=== PATIENT | female | born 2000 | race Caucasian/White ===

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

== ENCOUNTER 2023-03-11 09:30 | Inpatient (IN) ==
[2023-03-14] MEDS ORDERED: LIDOCAINE 1% LOCAL 20 ML VIAL INFIL PRN (13:20)
[2023-03-14] MEDS ORDERED: OXYTOCIN 30 UNITS/500 ML BAG IV PRN ×2 (13:20)
--- NOTE | 2023-03-14 13:53 | History & Physical Report ---
"Date of Service March 14, 2023 Assessment & Plan (1) Encounter for induction of labor: Plan pitocin arom when indicated monitor tracing, category 1 Admission and Anticipated Discharge Date Admission Date: March 14, 2023 History of Present Illness Primary Care Provider: Denise Jones MD 22 yo at 41w2d admitted for IOL for post dates. GBS neg, RH+ Prior to admission +contractions every 15m for 30s. No history of miscarriage. No concerns for STD/STI. Menstrual periods regular prior to . Allergy to penicillin. Denies WINTER, CP, SOB, N/V/D, LE pain. +constipation last BM today. Allergies Allergy/AdvReac Type Severity Reaction Status Date / Time Penicillins Allergy Intermediate rash Verified 03/10/23 13:05 Home Medications Medication Instructions Recorded Confirmed Type albuterol sulfate 90 mcg/actuation 2 puff inhalation .COMPLEX #8.5 09/23/21 03/14/23 Rx aerosol inhaler grams prenat.vits,barak,[id number]-cvpcj 1 tab PO DAILY 08/03/22 03/14/23 History pyridoxine (vitamin B6) PO 08/03/22 03/10/23 History acetone (urine) test (Ketone Urine #50 ea 01/10/23 03/10/23 Rx Test strips) blood sugar diagnostic (OneTouch #150 ea 01/10/23 03/10/23 Rx Verio test strips) blood-glucose meter (OneTouch #1 ea 01/10/23 03/10/23 Rx Verio Reflect Meter) lancets 33 gauge #150 ea 01/10/23 03/10/23 Rx Patient History Medical History (Updated 03/14/23 @ 14:48 by Chago Chisholm DO) Varicella vaccine History of infectious mononucleosis History of hearing loss History of concussion Ovarian cyst rupture Surgical History H/O breast augmentation [place] teeth removed Family History Grandfather Diabetes Hypertension Mother Asthma Lung cancer Brother Asthma Father No problems noted. Denies family history of Ovarian cancer Prostate cancer Myocardial infarction Breast cancer Colorectal cancer Social History (Updated 08/03/22 @ 13:51 by Veronica Jorge, RADHA) Smoking Status: Never smoker Tobacco Type: E-cigarettes / Vaping Second Hand Exposure: Yes (grandmother smokes); Do You Dip or Chew Tobacco: No; Hx Alcohol Use: Yes Alcohol type: beer and hard liquor Alcohol Intake Frequency: Monthly or Less Hx Substance Use: No Preferred Language: Finnish Communication Ability: Effective Visual Impairment: No Limitations Hearing Ability: Normal Psychologist Experimental Required: No Beliefs That Will Affect Care: None marital status: Single marital status details: Mother - Sheila Rikki [phone] Current Living Situation: Spouse Current Living Situation Comment: lives with boyfriend current occupational status: employed current occupation: works at [employer]. Other Information That Helps Us Care for You: No Feels Safe at Home: Yes Safety Concerns: Feels Safe At This Time Childhood Exposure to Second-Hand Smoke: Yes Diet: regular Diet Comment: regular caffeine: Yes during the past year weight has: remained stable Dental Care, Regularly: No Physical Activity Frequency: 3-4 Times per Week Seatbelt Use: always Sunscreen Use: Yes Assistive Devices: Contacts and Glasses Review of Systems reviewed, per HPI Physical Exam Physical Exam: General: patient resting comfortably, NAD, non-toxic in appearance, answers questions appropriately. Skin: warm, dry, intact HEENT: NC/AT, anicteric sclera, conjunctiva without injection, moist mucus memb ranes Heart: +S1/S2, regular, no m/r/g Lungs: equal air entry bilaterally, no rales/rhonchi/wheezes Abd: +BS, soft, NT, gravid uterus Cervical:2|50|-2|, estimated weight 8-9lbs Ext: warm, no clubbing/cyanosis or edema Neuro: speech intact, no facial droop, moving all extremities on command. : FHR baseline 130-135, moderate variability, accelerations present, decelerations absent, contractions q6-9mins Results & Data Vital Signs (Past 12 Hours) Vital Signs Pulse BP 03/14/23 13:29 83 121/70 Laboratory Results 03/14/23 Range/Units 14:19 WBC 9.08 (4.8-10.8) K/ul RBC 3.71 L (4.20-5.40) M/uL Hgb 13.1 (12.0-16.0) g/dl Hct 37.9 (37.0-47.0) % MCV 102.2 H (80.0-100.0) fL MCH 35.3 H (25.0-34.0) pg MCHC 34.6 (32.0-36.0) g/dL RDW Std Deviation 49.3 H (36.4-46.3) fL RDW Coeff of Roxy 13.2 (11.5-14.5) % Plt Count 269 (130-400) K/uL MPV 9.7 (9.4-12.4) fL Supervising Physician Co-Signing Physician Notes Resident Physician Supervision Note: I interviewed and examined the patient. Discussed with Dr. Chisholm and agree with findings and plan as documented in the note. Any exceptions or clarifications are listed here: 22 yo G1 at 41 2/7 wga presents for late term IOL. +FM; denies regular ctx, LOF, VB. PNI: A1GDM. VSS, SVE 2/50/-2. EFW 8-9. Cat 1, q6-10 ctx. Will start pit, GBS neg, epidural prn. BG q4, q2 in active labor Documented By: Yaneli Norris MD Resident Activity Tracking Resident Involvement: Resident Care Provided Care Provided: Adult Hospital Medicine"
[2023-03-14] MEDS: LACTATED RINGER'S 1,000 ML IV PRN ×2 (14:39→18:13)
[2023-03-14 14:40] LABS: Hematocrit (blood only) 37.9 % (37.0-47.0); Hemoglobin 13.1 g/dl (12.0-16.0); Mean Corpuscular Hemoglobin 35.3 pg (25.0-34.0); Mean Corpuscular Hgb Conc 34.6 g/dL (32.0-36.0); Mean Corpuscular Volume 102.2 fL (80.0-100.0); Mean Platelet Volume 9.7 fL (9.4-12.4); Platelet Count 269 K/uL (130-400); RDW Coefficient of Variation 13.2 % (11.5-14.5); RDW Standard Deviation 49.3 fL (36.4-46.3); Red Blood Count 3.71 M/uL (4.20-5.40); White Blood Count 9.08 K/ul (4.8-10.8)
[2023-03-14] MEDS ORDERED: fentaNYL citrate PF 100 MCG/2 ML VIAL ONE (17:39)
[2023-03-14] MEDS ORDERED: ePHEDrine sulfate 50 MG/ML AMP ONE (17:39)
[2023-03-14] MEDS ORDERED: BUPIVACAINE 0.25% PF 30 ML VIAL ONE (17:40)
[2023-03-14] MEDS ORDERED: LIDOCAINE 2%/EPINEPHRINE 1:200,000 20 ML PF ONE (17:40)
[2023-03-14] MEDS ORDERED: SODIUM CHLORIDE 0.9% PF INJ 10 ML VIAL ONE (17:40)
[2023-03-14] MEDS ORDERED: fentANYL 2 MCG/ML BUPIVacaine 0.125%-NSS 100ML BAG ONE (17:40)
[2023-03-14] MEDS ORDERED: BUPIVACAINE 0.25% PF 30 ML VIAL EPI STA (18:07)
[2023-03-14] MEDS ORDERED: ePHEDrine sulfate 50 MG/ML AMP IV PRN (18:07)
[2023-03-14] MEDS ORDERED: NALBUPHINE HCL 5 MG in SYRINGE 0 ML IV PRN (18:07)
[2023-03-14] MEDS ORDERED: SODIUM CHLORIDE 0.9% PF INJ 10 ML VIAL EPI STA (18:07)
[2023-03-14] MEDS ORDERED: diphenhydrAMINE 50 MG/ML VIAL IV PRN (18:07)
[2023-03-14] MEDS ORDERED: LIDOCAINE 2%/EPINEPHRINE 1:200,000 20 ML PF EPI STA (18:07)
[2023-03-14] MEDS ORDERED: ROPIVACAINE 0.5% PF 5 MG/ML 20 ML VIAL EPI PRN (18:07)
[2023-03-14] MEDS ORDERED: fentaNYL citrate PF 100 MCG/2 ML VIAL EPI PRN (18:07)
[2023-03-14] MEDS ORDERED: NALOXONE HCL 1 MG in SODIUM CHLORIDE 0.9% 1,000 ML IV PRN (18:07)
[2023-03-14] MEDS ORDERED: LIDOCAINE 2% MPF LOCAL 5 ML VIAL EPI PRN (18:07)
[2023-03-14] MEDS ORDERED: fentaNYL citrate PF 100 MCG/2 ML VIAL EPI STA (18:07)
[2023-03-14] MEDS ORDERED: NALOXONE HCL 0.4 MG/1 ML VIAL/CARP IV PRN (18:07)
[2023-03-14] MEDS ORDERED: SODIUM CHLORIDE 0.9% PF INJ 10 ML VIAL EPI PRN (18:07)
[2023-03-14] MEDS ORDERED: BUPIVACAINE 0.25% PF 30 ML VIAL EPI PRN (18:07)
--- NOTE | 2023-03-14 18:07 | Anesthesiology Consultation ---
Date of Service March 14, 2023 Assessment & Plan (1) Encounter for pre-operative examination: Chart Review Chart Review: Patient NOT seen in Pre Admission Testing and Acceptable Risk for Labor Epidural Consults Requested none History Height/Weight Height: 5 ft 6 in Weight: 87.543 kg Allergies Allergy/AdvReac Type Severity Reaction Status Date / Time Penicillins Allergy Intermediate rash Verified 03/10/23 13:05 Medications Home Medications Medication Instructions Recorded Confirmed Last Taken albuterol sulfate 90 mcg/actuation 2 puff inhalation .COMPLEX #8.5 09/23/21 03/14/23 Unknown aerosol inhaler grams prenat.vits,barak,pfs-dlhr-vtgkn 1 tab PO DAILY 08/03/22 03/14/23 Unknown pyridoxine (vitamin B6) PO 08/03/22 03/10/23 Unknown acetone (urine) test (Ketone Urine #50 ea 01/10/23 03/10/23 Unknown Test strips) blood sugar diagnostic (OneTouch #150 ea 01/10/23 03/10/23 Unknown Verio test strips) blood-glucose meter (OneTouch #1 ea 01/10/23 03/10/23 Unknown Verio Reflect Meter) lancets 33 gauge #150 ea 01/10/23 03/10/23 Unknown Active Medications Generic Name Dose Route Start Last Admin Trade Name Freq PRN Reason Stop Dose Admin Oxytocin 30 units in 500 mls @ 10 mls/hr 03/14/23 13:20 03/14/23 17:30 Pitocin IV 03/16/23 13:19 0.6 units/hr .Q24H PRN 10 mls/hr Labor Induction/Augmentation Titration Protocol 0.6 UNITS/HR Lactated Ringer's 1,000 mls @ 125 mls/hr 03/14/23 13:20 03/14/23 17:30 Lr IV 03/16/23 13:19 999 mls/hr .Q8H PRN Infusion L&D Protocol Protocol Past Medical History Medical History Varicella vaccine History of infectious mononucleosis History of hearing loss History of concussion Ovarian cyst rupture Past Family History Family History Grandfather Diabetes Hypertension Mother Asthma Lung cancer Brother Asthma Father No problems noted. Denies family history of Ovarian cancer Prostate cancer Myocardial infarction Breast cancer Colorectal cancer Past Surgical History Surgical History H/O breast augmentation [place] teeth removed Social History Smoking Status: Never smoker Do You Dip or Chew Tobacco: No Hx Alcohol Use: Yes Alcohol type: beer and hard liquor Hx Substance Use: No substance use type: does not use Physical Exam Vital Signs Last Vital Signs Temp 97.9 F 03/14/23 17:30 Pulse 80 03/14/23 18:02 Resp 20 03/14/23 17:30 BP 111/69 03/14/23 17:32 Pulse Ox 99 03/14/23 18:02 Testing Laboratory Results 03/14/23 14:19 03/14/23 14:46 POC Glucose 95
--- NOTE | 2023-03-14 22:29 | Labor Progress Brief Note ---
Date of Service March 14, 2023 Subjective Comfortable w/ epidural Assessment & Plan (1) Encounter for induction of labor: (2) Gestational diabetes mellitus (GDM) affecting : Plan 22 yo G1 at 41 2/7 wga presents for late term IOL VSS Fetus cat 1 Labor - pit at 10, now s/p arom. Continue induction A1GDM, bg wnl GBS neg epidural in place Admission and Anticipated Discharge Date Admission Date: March 14, 2023 Physical Exam Genitourinary: Manual OB Exam: + cervical dilation (3-4), + cervical effacement 70%, + station -2 and + amniotic fluid (arom clear) OB Exam Monitor Tracing: + external FHT monitor used, + external uterine monitor used (q3-5) and + category I (130-135/mod/+accel/-decel) Results & Data Vital Signs (Past 12 Hours) Vital Signs Temp Pulse Resp BP Pulse Ox 03/14/23 22:23 81 03/14/23 22:23 91/51 L 03/14/23 22:22 94 03/14/23 22:22 89 03/14/23 22:17 94 03/14/23 22:17 88 03/14/23 22:12 94 03/14/23 22:12 84 03/14/23 22:07 96 03/14/23 22:07 88 03/14/23 22:02 93 03/14/23 22:02 76 03/14/23 21:57 94 03/14/23 21:57 80 03/14/23 21:53 85 03/14/23 21:53 103/65 03/14/23 21:52 93 03/14/23 21:52 81 03/14/23 21:47 93 03/14/23 21:47 76 03/14/23 21:42 94 03/14/23 21:42 79 03/14/23 21:38 82 03/14/23 21:38 103/57 L 03/14/23 21:37 93 03/14/23 21:37 84 03/14/23 21:32 93 03/14/23 21:32 85 03/14/23 21:27 94 03/14/23 21:27 77 03/14/23 21:22 95 03/14/23 21:22 76 03/14/23 21:17 95 03/14/23 21:17 81 03/14/23 21:15 97.7 F 03/14/23 21:12 94 03/14/23 21:12 85 03/14/23 21:07 94 03/14/23 21:07 91 H 03/14/23 21:07 100/68 03/14/23 21:02 96 03/14/23 21:02 80 03/14/23 21:00 18 03/14/23 21:00 18 03/14/23 20:57 94 03/14/23 20:57 79 03/14/23 20:54 78 03/14/23 20:54 100/69 03/14/23 20:52 95 03/14/23 20:52 77 03/14/23 20:47 95 03/14/23 20:47 81 03/14/23 20:42 95 03/14/23 20:42 84 03/14/23 20:37 93 03/14/23 20:37 83 03/14/23 20:37 96/63 L 03/14/23 20:32 95 03/14/23 20:32 88 03/14/23 20:27 94 03/14/23 20:27 83 03/14/23 20:25 84 03/14/23 20:25 97/65 L 03/14/23 20:22 95 03/14/23 20:22 93 H 03/14/23 20:17 95 03/14/23 20:17 79 03/14/23 20:12 94 03/14/23 20:12 85 03/14/23 20:07 94 03/14/23 20:07 89 03/14/23 20:07 99/61 L 03/14/23 20:04 83 03/14/23 20:04 106/62 03/14/23 20:02 96 03/14/23 20:02 77 03/14/23 20:00 18 03/14/23 20:00 18 03/14/23 19:57 97 03/14/23 19:57 79 03/14/23 19:52 94 03/14/23 19:52 83 03/14/23 19:47 93 03/14/23 19:47 88 03/14/23 19:42 96 03/14/23 19:42 82 03/14/23 19:37 94 03/14/23 19:37 78 03/14/23 19:37 110/65 03/14/23 19:32 94 03/14/23 19:32 78 03/14/23 19:30 18 03/14/23 19:30 18 03/14/23 19:27 95 03/14/23 19:27 84 03/14/23 19:24 77 03/14/23 19:24 115/67 03/14/23 19:22 94 03/14/23 19:22 77 03/14/23 19:17 95 03/14/23 19:17 98 H 03/14/23 19:12 93 03/14/23 19:12 77 03/14/23 19:07 96 03/14/23 19:07 72 03/14/23 19:07 77 03/14/23 19:07 109/69 03/14/23 19:05 81 03/14/23 19:05 111/67 03/14/23 19:04 98.1 F 18 03/14/23 19:03 80 03/14/23 19:03 109/64 03/14/23 19:02 97 03/14/23 19:02 77 03/14/23 19:01 74 03/14/23 19:01 105/65 03/14/23 19:00 18 03/14/23 19:00 18 03/14/23 18:59 80 03/14/23 18:59 111/70 03/14/23 18:57 95 03/14/23 18:57 78 03/14/23 18:57 108/69 03/14/23 18:55 78 03/14/23 18:55 105/66 03/14/23 18:53 77 03/14/23 18:53 110/68 03/14/23 18:52 95 03/14/23 18:52 80 03/14/23 18:51 75 03/14/23 18:51 107/66 03/14/23 18:49 76 03/14/23 18:49 116/76 03/14/23 18:47 95 03/14/23 18:47 83 03/14/23 18:47 86 03/14/23 18:47 113/56 L 03/14/23 18:45 83 03/14/23 18:45 114/72 03/14/23 18:43 82 03/14/23 18:43 115/74 03/14/23 18:42 94 03/14/23 18:42 76 03/14/23 18:41 82 03/14/23 18:41 106/66 03/14/23 18:40 18 03/14/23 18:40 18 03/14/23 18:39 83 03/14/23 18:39 110/67 03/14/23 18:37 94 03/14/23 18:37 83 03/14/23 18:37 82 03/14/23 18:37 111/60 03/14/23 18:35 20 03/14/23 18:35 20 03/14/23 18:35 101 H 03/14/23 18:35 111/55 L 03/14/23 18:33 87 03/14/23 18:33 109/65 03/14/23 18:32 95 03/14/23 18:32 90 03/14/23 18:31 83 03/14/23 18:31 112/68 03/14/23 18:31 82 03/14/23 18:31 116/69 03/14/23 18:30 16 03/14/23 18:30 16 03/14/23 18:28 80 03/14/23 18:28 119/62 03/14/23 18:27 97 03/14/23 18:27 83 03/14/23 18:25 82 03/14/23 18:25 112/76 03/14/23 18:23 80 03/14/23 18:23 111/83 03/14/23 18:22 97 03/14/23 18:22 80 03/14/23 18:21 82 03/14/23 18:21 127/81 03/14/23 18:19 86 03/14/23 18:19 120/80 03/14/23 18:17 97 03/14/23 18:17 90 03/14/23 18:12 97 03/14/23 18:12 82 03/14/23 18:07 97 03/14/23 18:07 82 03/14/23 18:02 99 03/14/23 18:02 80 03/14/23 18:00 22 03/14/23 18:00 22 03/14/23 17:32 81 03/14/23 17:32 111/69 03/14/23 17:30 20 03/14/23 17:30 97.9 F 20 03/14/23 17:00 18 03/14/23 17:00 18 03/14/23 16:46 82 03/14/23 16:46 97/56 L 03/14/23 15:48 81 03/14/23 15:48 105/66 03/14/23 15:03 87 03/14/23 15:03 107/68 03/14/23 15:00 18 03/14/23 15:00 18 03/14/23 14:30 18 03/14/23 14:30 18 03/14/23 14:00 18 03/14/23 14:00 97.9 F 18 03/14/23 13:56 97.9 F 20 03/14/23 13:29 83 121/70 Coding Level of Care Code None Diagnoses Encounter for induction of labor Z34.90 Gestational diabetes mellitus (GDM) affecting O24.419
[2023-03-15] MEDS: fentANYL 2 MCG/ML BUPIVacaine 0.125%-NSS 100ML BAG EPI PRN ×2 (02:21→09:56)
[2023-03-15] MEDS: LACTATED RINGER'S 1,000 ML IV PRN ×2 (02:24→10:25)
--- NOTE | 2023-03-15 11:24 | Delivery Summary ---
Vaginal Delivery Summary Date of Service March 15, 2023 Vaginal Delivery Summary and 2nd Degree LAC Spontaneous vaginal delivery the patient was induced by Dr. Norris the day before I arrived cone former and the patient was 10 cm she did push for several hours patient did have an epidural patient had clear fluid patient delivered baby in occiput anterior position mouth and then nares were suctioned with bulb there was a tight nuchal cord around the neck this was clamped and then cut before delivery of the baby gentle traction on the baby with no excessive force delivered the anterior shoulder and then rest the baby followed live vigorous male infant cord blood obtained Cord gases obtained placenta removed with gentle traction she had a second-degree tear which was repaired with 3-0 Vicryl sponge and instrument counts were correct estimated blood loss 300 mL rectal exam ne gative for sutures or defects [facility] Vaginal Delivery Charge Delivery Type Details: and 2nd Degree LAC
[2023-03-15 11:30] LABS: Base Excess Cord Arterial Bld -2.7 mEq/L (-9-1.8); CO2 Cord Arterial Blood 53 mmHg (39.1-73.5); HCO3 Cord Arterial Blood 25 mmol/L (19.7-28.5); Oxygen Sat Cord Arterial Blood < 60.0 % (<60); PO2 Cord Arterial Blood < 20 mmHg (4.1-31.7); pH Cord Arterial Blood 7.28 (7.1-7.38)
[2023-03-15] MEDS ORDERED: DIPHTHERIA/TETANUS/PERTUSSIS Vaccine (Tdap, Age 7+yrs) 0.5mL SYR/VL IM ONE (11:31)
[2023-03-15] MEDS ORDERED: BENZOCAINE 20% SPRY 85 APPLN/85 GM CAN EXT PRN (11:31)
[2023-03-15] MEDS ORDERED: OXYTOCIN 30 UNITS/500 ML BAG IV PRN (11:31)
[2023-03-15] MEDS ORDERED: oxyCODONE/ACETAMINOPHEN 5mg/325mg TAB PO PRN (11:31)
[2023-03-15] MEDS ORDERED: bisacodyL 10 MG SUPP PR PRN (11:31)
[2023-03-15] MEDS ORDERED: ACETAMINOPHEN 325 MG TAB PO PRN (11:31)
[2023-03-15] MEDS ORDERED: HYDROCORTISONE ACETATE 25 MG SUPP PR PRN (11:31)
[2023-03-15 11:33] LABS: Base Excess Cord Venous Blood -3.5 mEq/L (-7.7-1.9); Cord Venous Blood HCO3 22 mmol/L (18.4-26.8); Cord Venous Blood PCO2 38 mmHg (30.4-57.2); Cord Venous Blood PO2 34 mmHg (14.1-43.3); Cord Venous Blood pH 7.36 (7.20-7.44); O2 Saturation Cord Venous Bld 69.9 % (<68)
[2023-03-15] MEDS: IBUPROFEN 600 MG TAB PO PRN ×3 (12:01→22:06)
--- NOTE | 2023-03-15 12:41 | Anesthesia Procedure Note ---
Date of Service March 15, 2023 Anesthesia Post Epidural Note Vital Signs Vital Signs: Temp Pulse Resp BP Pulse Ox 98.1 F 110 H 20 108/57 L 96 03/15/23 11:15 03/15/23 12:37 03/15/23 12:15 03/15/23 12:37 03/15/23 10:57 Pain Intensity Lower Abdomen: Pain Intensity: 3 Notes Mental Status: alert / awake / arousable and participated in evaluation Nausea / Vomiting: adequately controlled Pain: adequately controlled Airway Patency, RR, SpO2: stable & adequate BP & HR: stable & adequate Hydration State: stable & adequate Neuraxial Anesthesia: was administered and sensory block is resolving Anesthetic Complications: no major complications apparent and Pt Satisfied with anesthetic care Epidural: Removed without complications and With tip intact
[2023-03-15] MEDS: DOCUSATE SODIUM 100 MG CAP PO SCH (20:25)
[2023-03-16] MEDS: IBUPROFEN 600 MG TAB PO PRN ×5 (02:25→21:51)
[2023-03-16] MEDS: PRENATAL VITAMIN 1 TAB PO SCH (07:10)
[2023-03-16] MEDS: DOCUSATE SODIUM 100 MG CAP PO SCH ×2 (07:10→21:51)
[2023-03-16 07:28] LABS: Hematocrit (blood only) 34.4 % (37.0-47.0); Hemoglobin 11.3 g/dl (12.0-16.0); Mean Corpuscular Hemoglobin 34.2 pg (25.0-34.0); Mean Corpuscular Hgb Conc 32.8 g/dL (32.0-36.0); Mean Corpuscular Volume 104.2 fL (80.0-100.0); Mean Platelet Volume 9.8 fL (9.4-12.4); Platelet Count 219 K/uL (130-400); RDW Coefficient of Variation 13.3 % (11.5-14.5); RDW Standard Deviation 50.9 fL (36.4-46.3)
--- NOTE | 2023-03-16 07:56 | Obstetrical Progress Note ---
Date of Service March 16, 2023 Assessment & Plan (1) care following vaginal delivery: Plan: Doing well encourage ambulation pain control plan for dc tomorrow Admission and Anticipated Discharge Date Admission Date: March 14, 2023 Supervising Physician Co-Signing Physician Notes Resident Physician Supervision Note: I was present with Dr. Chisholm during the history and exam. I discussed the case with the resident and agree with the findings and plan as documented in the note. Any exceptions or clarifications are listed here: [None] Documented By: Lisa Fisher MD, FACOG Subjective 22 yo post day 1 s/p Ambulation: ambulating normally Voiding: no voiding problems Passing Gas:: Yes Diet Tolerance:: regular diet Lochia:: Small Feeding Type:: feeding Current Pain Level: Resting comfortably this AM in NAD. Denies WINTER, CP, SOB, N/V/D, LE pain/swelling. 2nd degree lac Review of Systems Review of Systems: reviewed, per HPI Physical Exam Physical Exam: General: patient resting comfortably, NAD, non-toxic in appearance, answers questions appropriately. Skin: warm, dry, intact HEENT: NC/AT, anicteric sclera, conjunctiva without injection, moist mucus membranes. Heart: +S1/S2, regular, no m/r/g Lungs: equal air entry bilaterally, no rales/rhonchi/wheezes Abd: +BS, soft, NT/ND, uterine fundus firm at umbilicus Ext: warm, no clubbing/cyanosis or edema, Akosua's neg. Neuro: speech intact, no facial droop, moving all extremities on command. Results & Data Vital Signs (Past 12 Hours) Vital Signs Temp Pulse Resp BP Pulse Ox O2 Del Method 03/16/23 07:15 36.4 C L 83 18 115/78 100 Room Air 03/16/23 02:27 36.3 C L 88 18 132/82 99 Room Air 03/15/23 23:00 36.4 C L 74 18 107/71 Room Air 03/15/23 20:24 36.5 C 97 H 18 112/74 96 Room Air Resident Activity Tracking Resident Involvement: Resident Care Provided Care Provided: Adult [facility]
[2023-03-16] MEDS ORDERED: bisacodyL 5 MG TABEC PO SCH (20:00)
[2023-03-17] MEDS: IBUPROFEN 600 MG TAB PO PRN ×2 (03:06→08:16)
--- NOTE | 2023-03-17 07:18 | Obstetrical Progress Note ---
Date of Service March 17, 2023 Assessment & Plan (1) care following vaginal delivery: Plan: Doing well encourage ambulation pain control plan for dc tomorrow Admission and Anticipated Discharge Date Admission Date: March 14, 2023 Supervising Physician Co-Signing Physician Notes Resident Physician Supervision Note: I was present with Dr. Chisholm during the history and exam. I discussed the case with the resident and agree with the findings and plan as documented in the note. Any exceptions or clarifications are listed here: doing well, eating, voiding, ambulating. ready to go home. abd soft ff 3 down nt. ext nt calves. ppd #2 dc home, instructions reviewed. bottle, rhpos, ri. Documented By: Joleen Jean Baptiste MD, FACOG Subjective 22 yo post day 2 s/p Ambulation: ambulating normally Voiding: no voiding problems Passing Gas:: Yes Diet Tolerance:: regular diet Lochia:: Small Feeding Type:: bottle feeding Current Pain Level: minimal Resting comfortably this AM in NAD. Denies WINTER, CP, SOB, N/V/D, LE pain/swelling. 2nd degree lac Review of Systems Review of Systems: reviewed, per HPI Physical Exam Physical Exam: General: patient resting comfortably, NAD, non-toxic in appearance, answers questions appropriately. Skin: warm, dry, intact HEENT: NC/AT, anicteric sclera, conjunctiva without injection, moist mucus membranes. Heart: +S1/S2, regular, no m/r/g Lungs: equal air entry bilaterally, no rales/rhonchi/wheezes Abd: +BS, soft, NT/ND, uterine fundus firm at umbilicus Ext: warm, no clubbing/cyanosis or edema, Akosua's neg. Neuro: speech intact, no facial droop, moving all extremities on command. Results & Data Vital Signs (Past 12 Hours) Vital Signs Temp Pulse Resp BP Pulse Ox O2 Del Method 03/16/23 23:40 36.4 C L 86 16 114/72 97 Room Air 03/16/23 20:00 36.4 C L 80 18 110/71 97 Room Air Resident Activity Tracking Resident Involvement: Resident Care Provided Care Provided: Adult Hospital Medicine
[2023-03-17] MEDS: DOCUSATE SODIUM 100 MG CAP PO SCH (08:16)
[2023-03-17] MEDS: PRENATAL VITAMIN 1 TAB PO SCH (08:16)
== END 2023-03-17 10:45 | disposition home or self-care (01) | DRG 807 ==
LOC: 4S1 03-14 13:17 → 4E2 03-15 13:49
DX: O70.1 Second degree perineal laceration during delivery; O69.1XX0 Labor and delivery complicated by cord around neck, with compression, not applicable or unspecified; Z88.0 Allergy status to penicillin; Z3A.41 41 weeks gestation of pregnancy; O48.0 Post-term pregnancy; Z83.3 Family history of diabetes mellitus; O24.429 Gestational diabetes mellitus in childbirth, unspecified control; Z37.0 Single live birth